=== PATIENT | male | born 1940 | race Caucasian/White ===

== ENCOUNTER 2016-11-20 10:38 | Emergency (ER) | payer MEDICARE ==
[2016-11-20 11:09] VITALS: BP 142/90
--- NOTE | 2016-11-20 11:56 | UC ---
UC General HPI - HPI Summary HPI Summary: Depression worsening since loss of in 2003 and loss of 2 other partners with past two years. Now pt is falling,has insomnia & loss of appetite; increased ETOH "too much". Pt has not been taking usual meds as directed due to diarrhea: lisinopril, paroxetine, mirtazepine, venlafaxine, cialis, citalopram, nitrofurantoin. Pt did finish lorazepam 1mg po tid Qty 12, script written on 10/[address] Boyle, [facility] ED doctor . losing weight, not drinking water, had diarrhea lately as well. feels fatigued. [ End ] - History of Current Complaint Chief Complaint: UCGeneralIllness Stated Complaint: WEAK NOT EATING DEPRESSION Time Seen by Provider: 11/20/16 11:28 Hx Obtained From: Patient, Family/Plush Dresser Onset/Duration: Gradual Onset Onset Severity: Mild Current Severity: Moderate - Allergy/Home Medications Allergies/Adverse Reactions: Allergies Allergy/AdvReac Type Severity Reaction Status Date / Time No Known Allergies Allergy Verified 11/20/16 11:06 Home Medications: Home Medications NK [No Home Medications Reported] 11/20/16 [History Confirmed 11/20/16] PMH/Surg Hx/FS Hx/Imm Hx Previously Healthy: No Endocrine History: Dyslipidemia Cardiovascular History: Cardiac Disease, Hypertension GI/ History: Kidney Stones Psychological History: Anxiety, Depression - Surgical History Surgical History: Yes Surgery Procedure, Year, and Place: [place] 1959; cardiac stent 2006 [facility] - Family History Known Family History: Positive: None - Social History Occupation: Retired Lives: Alone Alcohol Use: Daily Alcohol Amount: 12 beers Substance Use Type: None Smoking Status (MU): Heavy Every Day Tobacco Smoker Household Exposure Type: Cigarettes Cessation Counseling: Patient Advised to Stop Review of Systems Constitutional: Fatigue Skin: Negative Eyes: Negative ENT: Negative Respiratory: Negative Cardiovascular: Negative Gastrointestinal: Diarrhea Genitourinary: Frequency Motor: Negative Neurovascular: Negative Musculoskeletal: Negative Neurological: Weakness Psychological: Anxious, Depressed All Other Systems Reviewed And Are Negative: Yes Physical Exam Triage Information Reviewed: Yes Appearance: Well-Appearing, No Pain Distress, Thin Vital Signs: Initial Vital Signs Temp 98.5 F 11/20/16 10:53 Pulse 81 11/20/16 10:53 Resp 18 11/20/16 10:53 BP 142/90 11/20/16 10:53 Pulse Ox 99 11/20/16 10:53 Vital Signs Reviewed: Yes Eye Exam: Normal ENT Exam: Normal Dental Exam: Normal Neck exam: Normal Neck: Positive: 1 Respiratory Exam: Normal Cardiovascular Exam: Normal Abdominal Exam: Normal Musculoskeletal Exam: Normal Neurological Exam: Normal Psychological Exam: Normal Skin Exam: Normal Course/Dx - Course Course Of Treatment: Multiple co morbidities and also social concerns for alcohol and weakness / falling =-- to go to ED at [place] and discussed with Nayeli Howell at 1200 -- declined ambulance - Differential Dx - Multi-Symptom Differential Diagnoses: Urinary Tract Infection Provider Diagnoses: UTI in elderly with dehydration -- send to ED Discharge - Discharge Plan Condition: Fair Disposition: AGAINST MEDICAL ADVICE Discharge Disposition Comment: go to [facility] ED
== END 2016-11-20 12:15 | disposition left against medical advice (07) ==
LOC: UCCORT 10:38
DX: N39.0 Urinary tract infection, site not specified (principal); E86.0 Dehydration; F32.9 Major depressive disorder, single episode, unspecified; E78.5 Hyperlipidemia, unspecified; I10 Essential (primary) hypertension; Z87.442 Personal history of urinary calculi; F17.210 Nicotine dependence, cigarettes, uncomplicated
CPT/HCPCS: 81003; 99212; G0463